=== PATIENT | male | born 1965 | race Caucasian/White ===

== ENCOUNTER 2016-10-06 12:57 | Day surgery (SDC) | payer OTHER ==
[~2016-10-06] VITALS: Ht 167.6 cm; Wt 79.6 kg
[~2016-10-06 12:57] MED LIST: AMLO-145 PO; DIVALPROEX SODIUM; DULO30CA47 PO; GABA400C14 PO; IBUPROFEN; LISI10TA2 PO; METF-382 PO; OMEP40CA6 PO; TRAMADOL; ZYPREXA
[2016-10-06] MEDS ORDERED: PAIN MED (14:42)
[2016-10-06] MEDS ORDERED: BUPR1PAT10 TD (14:42)
[2016-10-06 14:56] VITALS: Ht 167.6 cm; Wt 79.6 kg
[2016-10-06] MEDS ORDERED: MIDAZOLAM 1 MG/ML 2 ML INJ ONE (15:13)
[2016-10-06] MEDS ORDERED: PROPOFOL 20 ML ONE (15:13)
[2016-10-06] MEDS ORDERED: LIDOCAINE 2% (SDV) 5 ML INJ ONE (15:13)
[2016-10-06 15:16] VITALS: BP 135/89; PULSE 87; RESP 18
[2016-10-06 15:55] VITALS: BP 124/84; RESP 20
--- NOTE | 2016-10-06 16:38 | GILP ---
DATE OF PROCEDURE: 10/06/2016 NAME OF PROCEDURE: Esophagogastroduodenoscopy with biopsies. SURGEON: Brady Lozano MD. HISTORY AND INDICATIONS: The patient is being evaluated for history of gastric ulceration. PREMEDICATION: Monitored anesthesia care by anesthesiologist. INSTRUMENT USED: Olympus panendoscope. TECHNIQUE: After informed consent, with the patient/relatives understanding the procedure, its indic ations, potential risks and complications, including but not limited to: allergic reaction, bleeding , perforation or infection, and after all pertinent questions were answered to the patients satisfac tion, the patient/relatives signed witnessed informed consent. Following this, premedication was administered slowly IV push under careful cardiovascular and respi ratory monitoring with pulse oximetry, automatic blood pressure and playground monitor. Once the sedative effect was achieved the patient was place in the left lateral decubitus, the panen doscope was introduced and advanced under visual control. Careful examination of the upper gastrointestinal tract, both on insertion as well as withdrawal of the instrument disclosed the following findings: ESOPHAGUS: The distal esophagus shows mild to moderate erythema and edema of the mucosa at the EG j unction. STOMACH: Upon entrance to the stomach air was insufflated, the gastric coy distended normally. The mucosa of the fundus, body and antrum of the stomach was carefully examined. It shows erythema and edema of the mucosa of a moderate degree. Biopsies were obtained to rule out H. pylori infection. The previously noted gastric ulcerations are not completely healed. There are a few erosions in th e antrum of the stomach. PYLORUS: The pylorus appears patent and within normal limits, with no evidence of gastric outlet obs truction. DUODENUM: The duodenal mucosa was carefully examined in the duodenal bulb as well as the second port ion of the duodenum and appears unremarkable with no evidence of duodenitis, ulcer or neoplasm. The instrument was then withdrawn, the patient tolerated the procedure well and was transfer out of the endoscopy suite awake, and in good condition to continue recovery under observation. IMPRESSION: 1. Mild distal esophagitis. 2. Healed gastric ulceration. 3. Erosive gastritis. Biopsies are obtained. Rule out H. pylori infection. RECOMMENDATIONS: We will continue PPI therapy. Further recommendations will depend on the patient's clinical course as well as review of biopsies. Dictated By: BRADY LOZANO MS/BONNIE Conf#: [id number] DID#: [id number] CC: BRADY LOZANO;*[facility]*
== END 2016-10-06 15:48 | disposition home or self-care (01) ==
LOC: GIL 12:57
PROVIDERS: ATTEND Internal Medicine Gastroenterology
DX: K31.9 Disease of stomach and duodenum, unspecified (principal); I10 Essential (primary) hypertension; E11.9 Type 2 diabetes mellitus without complications; J45.909 Unspecified asthma, uncomplicated; F20.9 Schizophrenia, unspecified
CPT/HCPCS: 43239; 82962; 88305; 88312; J2250; Z7610

== ENCOUNTER 2017-07-22 06:26 | Inpatient (IN) | END 2017-07-31 13:27 | disposition home or self-care (01) | DRG 454 ==